=== PATIENT | female | born 1990 | race Two or more races ===

== ENCOUNTER 2021-10-31 16:47 | Emergency (ER) | payer OTHER ==
[~2021-10-31] VITALS: Ht 167.6 cm; Wt 61.2 kg
[2021-10-31] MEDS ORDERED: METROTEXATE PO (17:02)
== END 2021-10-31 21:07 | disposition home or self-care (01) ==
LOC: ER 16:47
DX: M60.88 Other myositis, other site (principal)

== ENCOUNTER → 2022-01-21 | Outpatient (CLI) | payer OTHER ==
[~2022-01-21] MED LIST: METROTEXATE PO
== END | disposition home or self-care (01) ==
LOC: NUCLEAR 07:00
PROVIDERS: ATTEND General Practice
DX: M05.7A Rheumatoid arthritis with rheumatoid factor of other specified site without organ or systems involvement (principal)

== ENCOUNTER 2022-05-13 18:52 | Emergency (ER) | payer OTHER ==
[~2022-05-13] VITALS: Ht 167.6 cm; Wt 57.6 kg
[2022-05-13] MEDS ORDERED: MELOXICAM7.5 MG (19:27)
[2022-05-13] MEDS ORDERED: FOLIC ACID0.8 M1 (19:27)
[2022-05-13] MEDS ORDERED: MOTION SICKNESS25 M1 PO (21:48)
[2022-05-13] MEDS ORDERED: ZOFRAN8 MG PO (21:48)
== END 2022-05-13 21:54 | disposition home or self-care (01) ==
LOC: ER 18:52
DX: R42 Dizziness and giddiness (principal); R11.0 Nausea

== ENCOUNTER → 2022-08-11 | Outpatient (CLI) | payer OTHER ==
[~2022-08-11] MED LIST changes: +FOLIC ACID0.8 M1; +MELOXICAM7.5 MG; +MOTION SICKNESS25 M1 PO; +ZOFRAN8 MG PO
== END | disposition home or self-care (01) ==
LOC: MRI 11:47
PROVIDERS: ATTEND Psychiatry & Neurology Neurology
DX: R51.9 Headache, unspecified (principal); M54.2 Cervicalgia

== ENCOUNTER 2022-09-16 09:26 | Outpatient (CLI) | payer OTHER | END 2022-09-16 09:32 | disposition home or self-care (01) | LOC: MRI 09:26 | PROVIDERS: ATTEND Internal Medicine Rheumatology | DX: M05.79 Rheumatoid arthritis with rheumatoid factor of multiple sites without organ or systems involvement (principal) | CPT/HCPCS: 73221 ==

== ENCOUNTER 2023-01-12 20:08 | Emergency (ER) | payer OTHER ==
[~2023-01-12] VITALS: Ht 167.6 cm; Wt 58.1 kg
[2023-01-13] MEDS ORDERED: TRAMADOL HCL50 MG PO (03:35)
== END 2023-01-13 03:51 ==
LOC: ER 20:08
DX: M25.552 Pain in left hip (principal); Z88.2 Allergy status to sulfonamides

== ENCOUNTER 2023-06-23 18:06 | Emergency (ER) | payer OTHER ==
[~2023-06-23] VITALS: Ht 172.7 cm; Wt 72.6 kg
[~2023-06-23 18:06] MED LIST changes: +TRAMADOL HCL50 MG PO
== END 2023-06-23 19:57 | disposition home or self-care (01) ==
LOC: ER 18:06
DX: S70.02XA Contusion of left hip, initial encounter (principal); W18.30XA Fall on same level, unspecified, initial encounter; Y93.E1 Activity, personal bathing and showering; Y92.002 Bathroom of unspecified non-institutional (private) residence as the place of occurrence of the external cause; Y99.9 Unspecified external cause status; M25.552 Pain in left hip

== ENCOUNTER 2023-08-22 17:19 | Emergency (ER) | payer OTHER ==
[~2023-08-22] VITALS: Ht 170.2 cm; Wt 61.2 kg
[2023-08-22 19:23] LABS: HEMATOCRIT 35.4 % (36.0-45.00); HEMOGLOBIN 12.2 g/dL (12.0-15.00); MEAN CORPUSCULAR HEMOGLOBIN 31.3 pg (27.00-32.0); MEAN CORPUSCULAR HGB CONC 34.4 g/dl (32.0-36.0); PLATELET COUNT 176 K/uL (150-450); RED BLOOD COUNT 3.89 M/uL (4.00-6.00)
[2023-08-22 19:46] LABS: PH,URINE 6.5 (5.0-8.0); URINE APPEARANCE Clear; URINE BILIRRUBIN Negative (NEGATIVE); URINE BLOOD Large; URINE COLOR Yellow; URINE GLUCOSE Negative (NEGATIVE); URINE LEUKOCYTE Negative; URINE NITRATE Negative; URINE PROTEIN Negative (NEGATIVE); URINE UROBILINOGEN 0.2 E.U./dl
[2023-08-22 19:47] LABS: ALBUMIN 3.3 gm/dL (3.4-5.0); BILIRUBIN TOTAL 0.31 mg/dL (0.3-1.2); CALCIUM 8.9 mg/dL (8.5-10.1); CREATININE SERUM 0.65 mg/dL (0.55-1.02); GFR 105.63; GLOBULINA 3.8 G/DL (2.4-3.5); POTASSIUM 3.76 mEq/L (3.5-5.1); TOTAL PROTEIN 7.1 gm/dL (6.4-8.2)
[2023-08-22 19:50] LABS: URINE BACTERIA 36.5 uL (0.0-1933); URINE EPITHELIAL CELLS 3.6 uL (0.0-38.8); URINE RBC 13.7 uL (0.0-20.8); URINE WBC 1.8 uL (0.0-23.2)
== END 2023-08-22 20:50 | disposition home or self-care (01) ==
LOC: ER 17:20
PROVIDERS: General Practice
DX: M25.471 Effusion, right ankle (principal); M25.472 Effusion, left ankle

== ENCOUNTER 2024-05-25 17:53 | Emergency (ER) | payer OTHER ==
[~2024-05-25] VITALS: Ht 167.6 cm; Wt 59.0 kg
[2024-05-25] MEDS ORDERED: 0.9 % SODIUM CHLORIDE 1,000 ML IV ONE (19:15)
[2024-05-25] MEDS ORDERED: ONDANSETRON HCL 2 MG/ML VIAL IV ONE (19:15)
[2024-05-25] MEDS ORDERED: KETOROLAC TROMETHAMINE 60 MG VIAL IM ONE ×2 (19:15→19:39)
[2024-05-25] MEDS ORDERED: FAMOtidine 10 MG/ML (4ML VIAL) IV ONE (19:15)
[2024-05-25] MEDS ORDERED: ONDANSETRON HCL 2 MG/ML VIAL ONE (19:40)
[2024-05-25] MEDS ORDERED: FAMOTIDINE/PF 20 MG/2 ML VIAL ONE (19:40)
[2024-05-25 19:48] LABS: HEMATOCRIT 37.3 % (36.0-45.00); HEMOGLOBIN 12.7 g/dL (12.0-15.00); MEAN CELL VOLUME 93.2 fL (80.00-100.00); MEAN CORPUSCULAR HEMOGLOBIN 31.7 pg (27.00-32.0); MEAN CORPUSCULAR HGB CONC 33.9 g/dl (32.0-36.0); PLATELET COUNT 230 K/uL (150-450); RED CELL DISTRIBUTION WIDTH 14.4 % (11.5-14.5)
[2024-05-25 19:49] LABS: PH,URINE 6.5 (5.0-8.0); URINE APPEARANCE Cloudy; URINE BILIRRUBIN Negative (NEGATIVE); URINE BLOOD Moderate; URINE COLOR Yellow; URINE GLUCOSE Negative (NEGATIVE); URINE KETONE Trace (NEGATIVE); URINE LEUKOCYTE Large; URINE NITRATE Negative; URINE UROBILINOGEN 0.2 E.U./dl
[2024-05-25 19:53] LABS: URINE BACTERIA 1021.8 uL (0.0-1933); URINE EPITHELIAL CELLS 3.3 uL (0.0-38.8); URINE RBC 312.5 uL (0.0-20.8); URINE WBC 4351.4 uL (0.0-23.2)
[2024-05-25 19:58] LABS: URINE CAST 0.15 uL (0.0-1.40); URINE PROTEIN 100 (NEGATIVE)
[2024-05-25 20:41] LABS: ALBUMIN 3.6 gm/dL (3.4-5.0); ALKALINE PHOSPHATASE 75 U/L (50-136); ALT/SGPT 18 U/L (12-78); ANION GAP 8 (10.0-20.0); AST/SGOT 7 U/L (15-37); BILIRUBIN TOTAL 0.35 mg/dL (0.3-1.2); BLOOD UREA NITROGEN 8 mg/dL (7-18); BUN CREA RATIO 9 (7.0-25.0); CALCIUM 8.9 mg/dL (8.5-10.1); CARBON DIOXIDE 27 mEq/L (21-32); CHLORIDE 110 mmol/L (98-107); GFR 72.56; GLUCOSE FASTING 89 mg/dL (65-100); OSMOLALITY SERUM 279 MOSM/KG (275-295); POTASSIUM 3.92 mEq/L (3.5-5.1); SODIUM 141 mmol/L (136-145); TOTAL PROTEIN 7.6 gm/dL (6.4-8.2)
[2024-05-25 20:54] LABS: HCG QUANTITATIVE < 1 mUI/mL (1-3)
[2024-05-25] MEDS ORDERED: CEFTRIAXONE SODIUM 2,000 MG VIAL IV ONE (21:15)
== END 2024-05-26 02:59 | disposition home or self-care (01) ==
LOC: ER 17:54
PROVIDERS: General Practice
DX: N39.0 Urinary tract infection, site not specified (principal); N21.1 Calculus in urethra; Z88.8 Allergy status to other drugs, medicaments and biological substances